=== PATIENT | male | born 1980 | race Caucasian/White ===

== ENCOUNTER 2018-06-17 11:21 | Emergency (ER) | payer OTHER ==
--- NOTE | 2018-06-17 11:26 | EDPHY ---
H & P Stated Complaint: Right flank pain Time Seen by Provider: 06/17/18 11:23 HPI/ROS: 38-year-old male presents with complaint of sudden onset at 6:00 a.m. Of right flank right lower quadrant pain and painful urination. No prior history of similar symptoms. No prior history of kidney stones, no prior history of abdominal surgery. He denies fevers or chills. No diarrhea, no constipation Review of systems As per HPI General no fever no chills no weakness HEENT no eye pain no eye discharge. No eye redness, no sore throat Respiratory no cough, no shortness of breath Cardiac no chest pain, no peripheral edema GI positive abdominal pain, no diarrhea, no constipation, no nausea, no vomiting positive flank pain, no hematuria, positive dysuria Musculoskeletal no myalgias, no joint pain Heme no easy bruising, no easy bleeding Endo no polyuria, no polydipsia Skin no rashes, no pruritus Neuro no syncope, no dizziness, no headaches Psych is no suicidal ideation, no homicidal ideation Source: Patient Exam Limitations: No limitations - Personal History Current Tetanus/Diphtheria Vaccine: Yes - Medical/Surgical History Hx Asthma: No Hx Chronic Respiratory Disease: No Hx Diabetes: No Hx Cardiac Disease: No Hx Renal Disease: No Hx Cirrhosis: No Hx Alcoholism: No Hx HIV/AIDS: No Hx Splenectomy or Spleen Trauma: No - Family History Significant Family History: No pertinent family hx - Social History Smoking Status: Never smoked Alcohol Use: None Drug Use: None - Physical Exam Exam: 38-year-old male, in moderate to severe distress secondary to right flank and right lower quadrant pain Afebrile, vital signs stable, not diaphoretic HEENT atraumatic normocephalic, extraocular muscles intact, anicteric Oropharynx negative for erythema negative exudate, tolerating her own secretions Neck supple no meningismus Lungs clear to auscultation bilaterally Heart regular rate and rhythm without murmur rub or gallop Abdomen nondistended normoactive bowel sounds , no abdominal tenderness to palpation, no guarding no rebound Back mild right CVA tenderness, no step-offs, no spinal tenderness Extremities no cyanosis clubbing or edema Neuro alert and oriented, no focal deficits Constitutional: Initial Vital Signs Temperature (C) 36.9 C 06/17/18 11:26 Heart Rate 97 06/17/18 11:26 Respiratory Rate 16 06/17/18 11:26 Blood Pressure 153/104 H 06/17/18 11:26 O2 Sat (%) 100 06/17/18 11:26 O2 Delivery Mode Room Air Allergies/Adverse Reactions: No Known Allergies Allergy (Verified 06/17/18 11:26) Home Medications: Medication Instructions Recorded NK [No Known Home Meds] 06/17/18 Medical Decision Making - Diagnostics Imaging Results: Imaging Impressions Abdomen/Pelvis CT 06/17/18 11:40 Impression: 2.5-mm calculus on the bladder side of the ureterovesical junction with mild right hydroureter and hydronephrosis. Nonobstructive left nephrolithiasis. Results called and discussed with Eri Lewis MD on June 17, 2018 at 1246 hours. Attention: This CT examination is specifically designed to evaluate patients who are clinically suspected of having acute obstructive uropathy. This examination does not use radiographic contrast, and as such, provides only a limited evaluation of the abdomen, pelvis, and retroperitoneum. If there is further clinical suspicion for pathological conditions other than obstructive uropathy, a complete CT evaluation of the abdomen and pelvis utilizing intravenous, oral, and rectal contrast should be considered. ED Course/Re-evaluation: Patient seen and evaluated for sudden onset of right flank and right lower quadrant pain with dysuria Urine positive for blood negative for nitrites leukocytes BMP within normal limits CBC elevated white blood cell count 16 Patient given 1 L normal saline, 4 morphine, 4 of Zofran and Toradol 30 mg IV push Patient with marked relief of pain CT scan to rule out obstructive uropathy 2.5 mm stone at the right UVJ appears to have just passed into the bladder Patient also with 1 left kidney stone no hydronephrosis on the left and very mild hydronephrosis on the right No evidence of appendicitis Impression Acute renal colic Ureterolithiasis, resolved Plan DC home with instructions regarding kidney stones Follow-up with primary care physician Differential Diagnosis: Diagnosis considered but not limited to: Urethritis, acute appendicitis, pyelonephritis, ureterolithiasis, renal colic, cholelithiasis, cholecystitis - Data Points Laboratory Results: Laboratory Results 06/17/18 11:37 06/17/18 06/17/18 11:46 11:37 WBC 16.79 10^3/uL H 10^3/uL (3.80-9.50) RBC 5.26 10^6/uL 10^6/uL (4.40-6.38) Hgb 15.5 g/dL g/dL (13.7-17.5) Hct 43.5 % % (40.0-51.0) MCV 82.7 fL fL (81.5-99.8) MCH 29.5 pg pg (27.9-34.1) MCHC 35.6 g/dL g/dL (32.4-36.7) RDW 12.8 % % (11.5-15.2) Plt Count 385 10^3/uL 10^3/uL (150-400) MPV 9.4 fL fL (8.7-11.7) Neut % (Auto) 80.3 % H % (39.3-74.2) Lymph % (Auto) 12.8 % L % (15.0-45.0) [place] % (Auto) 5.4 % % (4.5-13.0) Eos % (Auto) 0.2 % L % (0.6-7.6) Baso % (Auto) 0.7 % % (0.3-1.7) Nucleat RBC Rel Count 0.0 % % (0.0-0.2) Absolute Neuts (auto) 13.50 10^3/uL H 10^3/uL (1.70-6.50) Absolute Lymphs (auto) 2.15 10^3/uL 10^3/uL (1.00-3.00) Absolute Monos (auto) 0.90 10^3/uL H 10^3/uL (0.30-0.80) Absolute Eos (auto) 0.03 10^3/uL 10^3/uL (0.03-0.40) Absolute Basos (auto) 0.11 10^3/uL H 10^3/uL (0.02-0.10) Absolute Nucleated RBC 0.00 10^3/uL 10^3/uL (0-0.01) Immature Gran % 0.6 % % (0.0-1.1) Immature Gran # 0.10 10^3/uL 10^3/uL (0.00-0.10) POC Sodium 138 mEq/L mEq/L (135-145) POC Potassium 3.4 mEq/L mEq/L (3.3-5.0) POC Chloride 103.0 mEq/L mEq/L (97-110) POC Total CO2 19 mEq/L L mEq/L (22-31) POC BUN 16 mg/dL mg/dL (7-23) POC Creatinine 1.1 mg/dL mg/dL (0.7-1.3) POC Glucose 117 mg/dL H mg/dL (70-100) POC Calcium 9.4 mg/dL mg/dL (8.5-10.4) Medications Given: Discontinued Medications Sodium Chloride (Ns) 1,000 mls @ 0 mls/hr IV ONCE ONE PRN Reason: Wide Open Stop: 06/17/18 11:37 Last Admin: 06/17/18 11:41 Dose: 1,000 mls Ketorolac Tromethamine (Toradol) 30 mg IVP EDNOW ONE Stop: 06/17/18 12:43 Last Admin: 06/17/18 12:44 Dose: 30 mg Morphine Sulfate (Morphine) 4 mg IVP EDNOW ONE Stop: 06/17/18 11:37 Last Admin: 06/17/18 11:52 Dose: 4 mg Ondansetron HCl (Zofran) 4 mg IVP EDNOW ONE Stop: 06/17/18 11:37 Last Admin: 06/17/18 11:52 Dose: 4 mg Point of Care Test Results: Chemistry 06/17/18 11:46 POC Sodium 138 mEq/L mEq/L (135-145) POC Potassium 3.4 mEq/L mEq/L (3.3-5.0) POC Chloride 103.0 mEq/L mEq/L (97-110) POC Total CO2 19 mEq/L L mEq/L (22-31) POC BUN 16 mg/dL mg/dL (7-23) POC Creatinine 1.1 mg/dL mg/dL (0.7-1.3) POC Glucose 117 mg/dL H mg/dL (70-100) POC Calcium 9.4 mg/dL mg/dL (8.5-10.4) Urine Dip Collection Date 06/17/18 Collection Time 11:46 Specific [place] (1.002-1.030) 1.010 PH (5.0-7.5) 6.5 Leukocytes (Negative) Negative Nitrites (Negative) Negative Protein (Negative) 1+ Glucose (Negative) Negative Ketones (Negative) 1+ Urobilnogen (0.2-1.0 EU) 0.2 Bilirubin (Negative) Negative Blood (Negative) 2+ Departure - Departure Disposition: Home, Routine, Self-Care Clinical Impression: Ureterolithiasis, Renal colic on right side Condition: Good Instructions: Kidney Stones (ED), How to Strain Your Urine (ED) Referrals: NONE *PRIMARY CARE P,. [Primary Care Provider] - As per Instructions [facility] [Provider Group] - As per Instructions
[2018-06-17] MEDS ORDERED: NS 1,000 ML IV ONE (11:36)
[2018-06-17] MEDS ORDERED: ONDANSETRON 4 MG/2 ML VIAL IVP ONE (11:36)
[2018-06-17] MEDS ORDERED: KETOROLAC 30 MG/1 ML SDV IVP ONE (12:42)
[2018-06-17 14:10] LABS: PLATELET COUNT 385 10^3/uL (150-400)
[2018-06-17 16:17] VITALS: BP 132/88
== END 2018-06-17 14:06 | disposition home or self-care (01) ==
LOC: CED 11:21
DX: N20.1 Calculus of ureter (principal); N23 Unspecified renal colic
CPT/HCPCS: 74176-PO; 80048-PO; 96374; J1885; J2270; J2405